=== PATIENT | female | born 1985 | race Caucasian/White ===

== ENCOUNTER 2017-09-04 22:07 | Inpatient (IN) | payer OTHER ==
[~2017-09-04] VITALS: Ht 162.6 cm; Wt 110.0 kg
[2017-09-04] MEDS ORDERED: D5%-LACTATED RINGERS 1,000 ML IV SCH (22:15)
[2017-09-04] MEDS ORDERED: OXYTOCIN 30U/ 0.9% NaCL 500ML 500 ML IV ONE (22:15)
[2017-09-04] MEDS ORDERED: ONDANSETRON 2MG/ML, 2ML IVPush PRN (22:30)
[2017-09-04] MEDS ORDERED: CALCIUM CARBONATE 500 MG TAB.CHEW PO PRN (22:30)
[2017-09-04 22:39] LABS: BASOPHILS % (AUTO) 0 % (0-1); EOSINOPHILS # (AUTO) 0.03 x10^3/uL (0-0.4); EOSINOPHILS % (AUTO) 0 % (1-7); LYMPHOCYTES # (AUTO) 1.88 x10^3/uL (1-3.4); LYMPHOCYTES % (AUTO) 19 % (22-44); MD NO; MEAN CORPUSCULAR HEMOGLOBIN 28.4 pg (27.0-34.8); MEAN CORPUSCULAR HGB CONC 33.3 g/dL (32.4-35.8); MEAN CORPUSCULAR VOLUME 85.4 fL (80-100); MEAN PLATELET VOLUME 8.1 fL (7.4-10.4); MONOCYTES # (AUTO) 0.58 x10^3/uL (0.2-0.8); MONOCYTES % (AUTO) 6 % (2-9); NEUTROPHILS # (AUTO) 7.45 x10^3/uL (1.8-6.8); NEUTROPHILS % (AUTO) 75 % (42-75); PLATELET COUNT 283 x10^3/uL (130-400); RED BLOOD COUNT 3.96 x10^6/uL (3.82-5.3); RED CELL DISTRIBUTION WIDTH 16.4 % (9.6-15.2)
[2017-09-04] MEDS ORDERED: OXYTOCIN 30U/ 0.9% NaCL 500ML 500 ML IV PRN (22:57)
[2017-09-04] MEDS ORDERED: LIDOCAINE/PF 1%, 30ML ONE (22:59)
[2017-09-04] MEDS ORDERED: MISOPROSTOL 200 MCG TABLET ONE (22:59)
[2017-09-04] MEDS ORDERED: OXYTOCIN 30U/ 0.9% NaCL 500ML 500 ML ONE (22:59)
[2017-09-04] MEDS ORDERED: PLEASE ENTER ALLERGIES MC SCH (23:00)
[2017-09-05] MEDS: LACTATED RINGERS 1,000 ML IV SCH ×4 (06:42→22:57)
[2017-09-05] MEDS ORDERED: DIPH,PERTUSS(ACELL),TET VAC/PF NC IM-VACC ONE ×2 (10:12→10:30)
[2017-09-05] MEDS ORDERED: FENTANYL PF 100 MCG/2ML ONE (20:21)
[2017-09-05] MEDS ORDERED: FENTANYL PF 100 MCG/2ML IVPush PRN (20:30)
[2017-09-05] MEDS ORDERED: FENTANYL PF 100 MCG/2ML IV PRN (20:30)
[2017-09-05] MEDS ORDERED: FENTANYL/BUPIV./NS/PF 250 ML EPIDCONT SCH (22:40)
[2017-09-05] MEDS ORDERED: FENTANYL/BUPIV./NS/PF 250 ML EPIDCONT ONE ×2 (22:43→22:50)
[2017-09-05] MEDS ORDERED: BUPIVACAINE 0.25% ONE (22:44)
[2017-09-05] MEDS ORDERED: EPHEDRINE 50 MG/ML, 1ML IVPush PRN (23:00)
[2017-09-05] MEDS ORDERED: NALOXONE 0.4 MG/ML, 1ML IVPush PRN (23:00)
[2017-09-05] MEDS ORDERED: LACTATED RINGERS 1,000 ML IVBOLUS PRN (23:00)
[2017-09-06] MEDS: LACTATED RINGERS 1,000 ML IV SCH ×5 (03:03→19:20)
[2017-09-06] MEDS ORDERED: FENTANYL PF 100 MCG/2ML ONE (17:54)
[2017-09-06] MEDS ORDERED: PHENYLEPHRINE 10 MG/ML ONE (17:55)
[2017-09-06] MEDS ORDERED: WATER-INJECTION,STERILE 10 ML IV ONE (17:55)
[2017-09-06] MEDS ORDERED: LIDOCAINE-MPF 2% ,5ML ONE (17:55)
[2017-09-06] MEDS ORDERED: OXYTOCIN 10 UNITS/ML, 1ML ONE (17:55)
[2017-09-06] MEDS ORDERED: BUPIVACAINE/PF 0.25% ONE (17:55)
[2017-09-06] MEDS ORDERED: EPHEDRINE 50 MG/ML, 1ML ONE (17:55)
[2017-09-06] MEDS ORDERED: CEFAZOLIN 1,000 MG ONE (17:55)
[2017-09-06] MEDS ORDERED: CEFAZOLIN PMX 2GM/50ML 50 ML IVPB ONE (18:00)
[2017-09-06] MEDS ORDERED: BUPIVACAINE 0.25% ONE (18:11)
[2017-09-06] MEDS ORDERED: ONDANSETRON 2MG/ML, 2ML ONE (18:11)
[2017-09-06] MEDS ORDERED: morphine SULFATE/PF 0.5 MG/ML, 10ML ONE (18:41)
[2017-09-06] MEDS: OXYTOCIN 30U/ 0.9% NaCL 500ML 500 ML IV SCH (19:20)
[2017-09-06] MEDS ORDERED: METHYLERGONOVINE 0.2 MG/ML IM ONE (19:28)
[2017-09-06] MEDS ORDERED: METHYLERGONOVINE 0.2 MG/ML IM PRN (19:30)
[2017-09-06] MEDS ORDERED: METOCLOPRAMIDE 5 MG/ML, 2ML IV ONE (19:30)
[2017-09-06] MEDS ORDERED: MEASLES,MUMPS&RUBELLA VACC/PF 0.5 ML SQ-VACC PRN (19:30)
[2017-09-06] MEDS ORDERED: morphine SULFATE 10 MG/ML, 1ML IVPush PRN ×2 (19:30)
[2017-09-06] MEDS ORDERED: ONDANSETRON 2MG/ML, 2ML IV PRN (19:30)
[2017-09-06] MEDS ORDERED: MISOPROSTOL 200 MCG TABLET PR PRN (19:30)
[2017-09-06] MEDS ORDERED: CARBOPROST TROMETHAMINE 250 MCG/ML, 1ML IM PRN (19:30)
[2017-09-06] MEDS ORDERED: SODIUM CITRATE/CITRIC ACID 30 ML UDC PO ONE (19:30)
[2017-09-06] MEDS ORDERED: ACETAMINOPHEN 325 MG TABLET PO PRN (19:30)
[2017-09-06] MEDS ORDERED: DIPH,PERTUSS(ACELL),TET VAC/PF NC IM-VACC PRN (19:30)
[2017-09-06] MEDS ORDERED: KETOROLAC 30 MG/1 ML ONE (20:08)
[2017-09-06] MEDS: KETOROLAC 30 MG/1 ML IV SCH (20:16)
[2017-09-06 21:00] VITALS: BP 122/76
[2017-09-07 01:00] VITALS: BP 121/74
[2017-09-07] MEDS: KETOROLAC 30 MG/1 ML IV SCH ×4 (02:03→21:35)
[2017-09-07] MEDS: CEFAZOLIN PMX 2GM/50ML 50 ML IVPB SCH ×3 (02:04→19:00)
[2017-09-07 02:45] LABS: BASOPHILS % (AUTO) 0 % (0-1); EOSINOPHILS # (AUTO) 0.01 x10^3/uL (0-0.4); EOSINOPHILS % (AUTO) 0 % (1-7); LYMPHOCYTES # (AUTO) 0.89 x10^3/uL (1-3.4); LYMPHOCYTES % (AUTO) 6 % (22-44); MD NO; MEAN CORPUSCULAR HEMOGLOBIN 28.8 pg (27.0-34.8); MEAN CORPUSCULAR HGB CONC 33.6 g/dL (32.4-35.8); MEAN CORPUSCULAR VOLUME 85.5 fL (80-100); MEAN PLATELET VOLUME 7.5 fL (7.4-10.4); MONOCYTES # (AUTO) 0.37 x10^3/uL (0.2-0.8); MONOCYTES % (AUTO) 2 % (2-9); NEUTROPHILS # (AUTO) 14.83 x10^3/uL (1.8-6.8); NEUTROPHILS % (AUTO) 92 % (42-75); PLATELET COUNT 264 x10^3/uL (130-400); RED BLOOD COUNT 3.94 x10^6/uL (3.82-5.3); RED CELL DISTRIBUTION WIDTH 16.5 % (9.6-15.2)
[2017-09-07] MEDS: LACTATED RINGERS 1,000 ML IV SCH ×5 (03:20→19:20)
[2017-09-07] MEDS ORDERED: CEFAZOLIN PMX 1GM/50ML 50 ML IV SCH (03:30)
[2017-09-07 04:00] VITALS: BP 124/72
[2017-09-07] MEDS: OXYTOCIN 30U/ 0.9% NaCL 500ML 500 ML IV SCH ×2 (05:20→15:20)
[2017-09-07 08:00] VITALS: BP 121/78
[2017-09-07] MEDS: DOCUSATE 100 MG CAPSULE PO PRN ×2 (08:29→20:32)
[2017-09-07] MEDS: PRENATAL VIT/IRON/FA 1 EACH TABLET PO SCH (09:00)
[2017-09-07 12:00] VITALS: BP 124/81
[2017-09-07] MEDS: OXYcodone IR 5MG TABLET PO PRN (13:12)
[2017-09-07 16:00] VITALS: BP 123/76
[2017-09-07 19:32] VITALS: BP 115/73
[2017-09-07] MEDS: SIMETHICONE 80 MG CHEW TAB PO PRN (20:32)
[2017-09-08] MEDS: OXYcodone IR 5MG TABLET PO PRN (00:28)
[2017-09-08] MEDS: OXYTOCIN 30U/ 0.9% NaCL 500ML 500 ML IV SCH (01:20)
[2017-09-08] MEDS: LACTATED RINGERS 1,000 ML IV SCH ×2 (01:20→03:20)
[2017-09-08] MEDS: KETOROLAC 30 MG/1 ML IV SCH (02:00)
[2017-09-08] MEDS ORDERED: IBUPROFEN 600 MG TABLET ONE ×2 (06:11→11:44)
[2017-09-08] MEDS: OXYcodone/APAP 5/325MG TABLET PO PRN ×2 (06:13→19:11)
[2017-09-08] MEDS: SIMETHICONE 80 MG CHEW TAB PO PRN (06:13)
[2017-09-08 07:00] VITALS: BP 120/80
[2017-09-08] MEDS: DOCUSATE 100 MG CAPSULE PO PRN (11:49)
[2017-09-08] MEDS: PRENATAL VIT/IRON/FA 1 EACH TABLET PO SCH (11:50)
[2017-09-08] MEDS: IBUPROFEN 800 MG TABLET PO PRN (19:11)
[2017-09-08 19:45] VITALS: BP 134/83
[2017-09-09] MEDS: OXYcodone/APAP 5/325MG TABLET PO PRN ×4 (00:42→15:24)
[2017-09-09] MEDS: IBUPROFEN 800 MG TABLET PO PRN ×2 (04:31→13:14)
[2017-09-09 07:05] VITALS: BP 112/72
[2017-09-09] MEDS: DOCUSATE 100 MG CAPSULE PO PRN (09:45)
[2017-09-09] MEDS: PRENATAL VIT/IRON/FA 1 EACH TABLET PO SCH (09:45)
[2017-09-09] MEDS ORDERED: IBUP-1222 PO (15:40)
[2017-09-09] MEDS ORDERED: OXYC-302 PO (15:41)
== END 2017-09-09 17:20 | disposition home or self-care (01) | DRG 766 ==
LOC: LDIP 22:07 → 2NW 09-06 20:42
PROVIDERS: ADMIT Obstetrics & Gynecology Gynecology; ATTEND Obstetrics & Gynecology Gynecology
PROC: 10D00Z1 Extraction of Products of Conception, Low, Open Approach (ICD-10-PCS; principal; 2017-09-06)
DX: O77.0 Labor and delivery complicated by meconium in amniotic fluid (principal); O62.1 Secondary uterine inertia; Z37.0 Single live birth; Z3A.40 40 weeks gestation of pregnancy
CPT/HCPCS: 36415; 82803; 85025; 86850; 86900; 90715; J0690; J1885; J2274; J2405; J3010; J3490; J2370; J2590; J2765; J7120